=== PATIENT | female | born 1960 | race African-American/Black ===

== ENCOUNTER 2020-07-07 23:33 | Emergency (ER) | payer OTHER ==
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
== END 2020-07-08 01:01 | disposition home or self-care (01) ==
LOC: MW.ED 23:33
DX: S13.4XXA Sprain of ligaments of cervical spine, initial encounter (principal); V49.49XA Driver injured in collision with other motor vehicles in traffic accident, initial encounter
CPT/HCPCS: 72125; 72125-26; 96372; 99283; 99284-25